=== PATIENT | female | born 1995 | race Caucasian/White ===

== ENCOUNTER 2019-09-22 05:10 | Day surgery (SDC) | payer OTHER ==
[~2019-09-22] VITALS: Ht 157.5 cm; Wt 73.0 kg
[2019-09-22] VITALS (13 sets, daily range): BP systolic 109–128; BP diastolic 62–80
[2019-09-22] MEDS ORDERED: NEXPLANON68 MG SQ (05:59)
[2019-09-22] MEDS ORDERED: Morphine Sulfate 4mg/ml Inj (IV USE ONLY) IM PRN (06:00)
[2019-09-22] MEDS ORDERED: oxyCODONE 5mg IR tab ORAL PRN ×2 (06:00→15:01)
[2019-09-22] MEDS ORDERED: Chloraseptic Spray 20mL Bottle ORAL PRN (06:00)
[2019-09-22] MEDS ORDERED: LORazepam 0.5mg tab ORAL PRN (06:00)
[2019-09-22] MEDS ORDERED: HYDROcodone/Acetamin 10/325 tab ORAL PRN (06:00)
[2019-09-22] MEDS ORDERED: Milk of Magnesia 30ml Ud ORAL PRN (06:00)
[2019-09-22] MEDS ORDERED: Dexamethasone 20mg/5ml IVP SCH (06:00)
[2019-09-22] MEDS ORDERED: LR 1000ml 1,000 ML IVLG SCH (06:29)
[2019-09-22] MEDS ORDERED: Meperidine 50mg/ml Inj(FOR RIGORS ONLY) IVP PRN (06:30)
[2019-09-22] MEDS ORDERED: Hydromorphone 0.5mg/0.5ml inj IVP PRN (06:30)
[2019-09-22] MEDS ORDERED: DiphenhydrAMINE 50mg/ml Inj IVP PRN (06:30)
[2019-09-22] MEDS ORDERED: HYDROcodone/Acetamin 7.5/325 tab ORAL PRN (06:30)
[2019-09-22] MEDS ORDERED: Labetalol 5mg/ml 20ml vial IV PRN (06:30)
[2019-09-22] MEDS ORDERED: HYDROcodone/Acetamin 5/325 tab ORAL PRN (06:30)
[2019-09-22] MEDS ORDERED: LORazepam Inj 2mg/ml 1ml IV PRN (06:30)
[2019-09-22] MEDS ORDERED: Midazolam 2mg/2ml Inj IVP PRN (06:30)
[2019-09-22] MEDS ORDERED: fentaNYL 100 mcg/2 mL IV PRN (06:30)
[2019-09-22] MEDS ORDERED: Ketorolac 30mg Inj IV PRN ×2 (06:30)
[2019-09-22] MEDS ORDERED: oxyCODONE HCL/Acetaminophen 5/325mg ORAL PRN (06:30)
[2019-09-22] MEDS ORDERED: Atropine Sulfate 0.4mg/ml inj IVP PRN (06:30)
[2019-09-22] MEDS ORDERED: Acetaminophen (Non formulary) 100 ML IV ONE (06:30)
--- NOTE | 2019-09-22 06:30 | Anethesia Preoperative Eval ---
Anesthesia Pre-op PMH/ROS General Date of Evaluation: Sep 22, 2019 Time of Evaluation: 07:01 Anesthesiologist: Joelle ASA Score: ASA 1 Mallampati Score Class I : Soft palate, uvula, fauces, pillars visible Class II: Soft palate, uvula, fauces visible Class III: Soft palate, base of uvula visible Class IV: Only hard plate visible Mallampati Classification: Class I Surgeon: Autumn Diagnosis: Neck Pain Surgical Procedure: ACDF C4-5, C5-6 Anesthesia History: none Family History: no anesthesia problems Allergies: Coded Allergies: No Known Allergies (Unverified , 09/21/19) Medications: see eMAR Patient NPO?: Yes NPO Date: Sep 21, 2019 NPO Time: 2300 Anesthesia Pre-op Phys. Exam Physician Exam Last Vital Signs Date Time Temp Pulse Resp B/P (MAP) Pulse Ox O2 Delivery O2 Flow Rate FiO2 09/22/19 06:17 Room Air 09/22/19 05:46 98.5 93 18 123/80 (94) 98 Constitutional: NAD Neurologic: CN 2-12 intact Cardiovascular: RRR Respiratory: CTA Gastrointestinal: S/NT/ND Airway Exam Mallampati Score: Class I MO: full ROM: full Teeth: intact Anesthesia Pre-op A/P Labs Urine Test Test 09/22/19 05:25 Urine HCG, Qualitative Negative (NEGATIVE) Risk Assessment & Plan Assessment: ASA 1 Plan: GA, SED, GlideScope Go Pre-Antibiotics Dru Grams Ancef IV Given Within 1 Hr of Incision: Yes Time Given: 07:26 Jarvis Lai MD Sep 22, 2019 06:30
[2019-09-22] MEDS ORDERED: Gelfoam Size TOPIC ONE (06:33)
[2019-09-22] MEDS ORDERED: Thrombin 5000 units TOPIC ONE ×2 (06:33→07:18)
[2019-09-22] MEDS ORDERED: Bacitracin 50000 Units Vial ONE (06:33)
[2019-09-22] MEDS ORDERED: Rocuronium Bromide 50mg/5ml Inj IV ONE (06:35)
--- NOTE | 2019-09-22 06:50 | Immediate Post-Op Evaluation ---
Immediate Post-Op Evalulation Immediate Post-Op Evalulation Procedure: ACDF C4-5, C5-6 Date of Evaluation: Sep 22, 2019 IV Fluids: 1100 LR Blood Products: 0 Estimated Blood Loss: 25 Urinary Output: 0 Blood Pressure Systolic: 117 Blood Pressure Diastolic: 71 Pulse Rate: 94 Respiratory Rate: 16 O2 Sat by Pulse Oximetry: 100 Temperature (Fahrenheit): 97 Pain Score (1-10): 2 Nausea: No Vomiting: No Complications 0 Patient Status: awake, reacts, patent, extubated, none Hydration Status: adequate Dru Grams Ancef IV Given Within 1 Hr of Incision: Yes Time Given: 07:26 Jarvis Lai MD Sep 22, 2019 06:49
[2019-09-22] MEDS ORDERED: Lidocaine 1% MPF 10mg/ml 5ml ONE (06:56)
[2019-09-22] MEDS ORDERED: Sodium Chloride 10ml vial INJ ONE (06:56)
[2019-09-22] MEDS ORDERED: Lidocaine 1% Plain 30 ml INJ ONE ×2 (06:56→08:43)
[2019-09-22] MEDS ORDERED: Dexamethasone 4mg/ml vial ONE (06:56)
[2019-09-22] MEDS ORDERED: fentaNYL 100 mcg/2 mL IV ONE ×2 (06:57→08:10)
[2019-09-22] MEDS ORDERED: LR 1000ml ONE ×2 (07:00)
[2019-09-22] MEDS ORDERED: Sterile Water Irrig 1000ml IRRIG ONE (07:00)
[2019-09-22] MEDS ORDERED: Neostigmine 1mg/ml 10ml Inj ONE (07:00)
[2019-09-22] MEDS ORDERED: Labetalol 5mg/ml 20ml vial IV ONE (07:00)
[2019-09-22] MEDS ORDERED: Propofol 1,000mg/ 100ml btl IV ONE (07:00)
[2019-09-22] MEDS ORDERED: NS Irrig 1000ml ONE (07:00)
[2019-09-22] MEDS ORDERED: ceFAZolin sod 1gm in D5W 55ml IVPB ONE (07:00)
--- NOTE | 2019-09-22 07:10 | Pre-Procedure Note/Attestation ---
Pre-Procedure Note/Attestation Complete Prior to Procedure Planned Procedure: not applicable Procedure Narrative: ACDF C4-C5, C5-C6 Anterior Plate Fixation Indications for Procedure Pre-Operative Diagnosis: traumatic neck pain HNP Attestation I attest that I discussed the nature of the procedure; its benefits; risks and complications; and alternatives (and the risks and benefits of such alternatives ), prior to the procedure, with the patient (or the patient's legal clearance representative). I attest that, if there was a reasonable possibility of needing a blood transfusion, the patient (or the patient's legal clearance representative) was given the [facility] standardized written summary, pursuant to the [place] Blood Safety Act ([place] Health and Safety Code # 1645, as amended). I attest that I re-evaluated the patient just prior to the surgery and that there has been no change in the patient's H&P, except as documented below: Moo Leyva MD Sep 22, 2019 07:10
[2019-09-22] MEDS ORDERED: Glycopyrrolate 0.2mg/ml 1ml Vial ONE (09:05)
--- NOTE | 2019-09-22 09:33 | Brief Operative Note ---
Immediate Post Operative Note Operative Note Pre-op Diagnosis: traumatic neck pain HNP Procedure: ACDF C4-C5, C5-C6 Anterior plate osteopromotive material titanium interbody device C4-C5, C5-C6 Findings: consistent w/pre-op dx studies Surgeon: Autumn NDIAYE Slip Sheeter: Morales WATTS Anesthesiologist: Joelle NDIAYE Anesthesia: general Specimen: yes Complications: none Condition: stable Fluids: anesthesia Estimated Blood Loss: minimal Drains: none Implant(s) used?: Yes Moo Leyva MD Sep 22, 2019 09:32
[2019-09-22] MEDS ORDERED: Naloxone 0.4mg/ml Inj IVP PRN (09:45)
--- NOTE | 2019-09-22 13:36 | Diagnostic Imaging Report ---
Indication: Neck pain Technique: Intraoperative fluoroscopic imaging from spinal surgery Operating Physician: Moo Leyva MD Total fluoroscopy time 10.1 seconds Total fluoroscopy dose 0.81 mGy Total number fluoroscopic images 4 Radiologist not present during image acquisition Comparison: None Findings: Intraoperative fluoroscopic imaging from spinal surgery demonstrate an indwelling endotracheal tube and anterior cervical fusion spanning from C4 to C6 by means of an anterior plate affixed by 2 screws at each level as well as interbody disc spacers. Multiple surgical zain are noted. IMPRESSION: Intraoperative fluoroscopic imaging from spinal surgery. Please see operative report.
[2019-09-22] MEDS ORDERED: D5 1/2NS 1,000 ML IV SCH (14:00)
[2019-09-22] MEDS: ceFAZolin sod 1 GM in D5W 55 ML IV SCH ×2 (14:26→14:28)
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
--- NOTE | 2019-09-22 16:15 | Operative Note - Dictated ---
DATE OF OPERATION: 09/22/2019 ADMITTING/PREOPERATIVE DIAGNOSIS: Posttraumatic discogenic neck pain. POSTOPERATIVE DIAGNOSIS: Posttraumatic discogenic neck pain. OPERATIVE PROCEDURE: 1. ACDF C4-C5, C5-C6. 2. Anterior internal plate fixation with internal fixation of screws interbody titanium graft, osteopromotive material placement for fusion. 3. Anterior plate with bilateral screws noted at C4-C5-C6. 4. Intraoperative fluoroscopy interpreted by surgeon. SURGEON: Moo Leyva M.D. SAP [facility] SECURITY: STEFANIE Marte. ANESTHESIOLOGIST: Jarvis Lai M.D. ANESTHESIA: General with intubation. ESTIMATED BLOOD LOSS: Minimal. COMPLICATIONS: None. POSTOPERATIVE CONDITION: Good/stable. DESCRIPTION OF PROCEDURE: The patient was brought to the operating room and in the supine position, general anesthesia with intubation was induced. IV antibiotics and IV Decadron were administered 30 minutes prior to incision time. Cross-table imaging was obtained with markers placed on the contralateral aspect of the neck/skin to determine the correct level for incision placement. Position markers was recorded with sterile marking pen. Markers removed. Anterior cervical spine sterilely prepped and draped free in usual sterile fashion. A transverse incision as previously marked left was sharply placed in the dermis and epidermis. Electrocautery dissection was carried through the subcutaneous tissue to the level of the platysmas muscle was identified isolated and transected in line with the incision. Blunt dissection was carried medial to the sternocleidomastoid muscle and the carotid sheath through the deep cervical pretracheal fascia to the midline between the right and left longus colli muscles. Spinal needle was placed into the disk space under direct high-power magnification bent so as to avoid penetration greater 3 mm into the disk space. Cross-table imaging under sterile conditions demonstrating the correct level for further surgery. Level was marked, needle removed. Subperiosteal elevation of the longus coli muscles followed with retractor placement. C5-C6: Distraction pins were placed with annulotomy followed with diskectomy to but not through the posterior longitudinal ligament. Denuding of endplates of cartilage with Midas Lorne bur dissection. Appropriate graft trial utilized with fluoroscopic guidance followed with graft placement with titanium graft to the appropriate dimensions and lordosis containing osteopromotive material with local autograft. Depth of the graft was the smallest that is manufactured. Graft position excellent. Pins removed. Bleeding bone cauterized with application of wax. Dissection carried to the C4-C5 interval with retractors placement, annulotomy, diskectomy with utilization of traction pins. Pins 12 mm. Endplates denuded of cartilage utilizing Midas Lorne bur dissection followed with appropriate trials and placement of titanium graft also containing osteopromotive material local autograft. Pins were removed. Bone cauterized with application of sterile wax. A 10 pounds of traction on the neck removed. Anterior internal plate fixation with bilateral screws at C4, C5, C6 locked into position. Excellent alignment position on AP and lateral planes with formal radiographs obtained and recorded. Wound was irrigated with antibiotic-containing saline. Exploration revealed no obvious excoriation or laceration of vital structures. SSEP monitoring stable at all times with negative EMGs. FloSeal applied followed with reapproximation with Vicryl suture material of the platysmas muscle followed with subcuticular reapproximation and running of the dermis and epidermis with transverse surgical strips. Sterile bandage applied, maintained in place with tape. The patient was awakened, extubated in the operating room, and transported to postop recovery in good stable condition. Moo Leyva M.D. DR: RUBEN JOB#: [id number] CC:
--- NOTE | 2019-09-22 16:35 | NUR ---
NURSE NOTES: pt voidedx 2, ambulated to the restroom. percocet effective in pain management as well as chloraseptic spray.
--- NOTE | 2019-09-22 17:02 | NUR ---
NURSE NOTES: pt left in stable condition, arm band and iv removed, no bleeding. pt has all belongings. dc instructions rendered w verbalized understanding re no twisting, no heavy lifting.
[2019-09-23 08:45] VITALS: BP 116/72
--- NOTE | 2019-09-23 08:45 | 48 Hour Post Anesthesia Eval ---
Post Anesthesia Evaluation Procedure: ACDF C4-5, C5-6 Date of Evaluation: Sep 22, 2019 Time of Evaluation: 15:20 Blood Pressure Systolic: 116 0: 72 Pulse Rate: 78 Respiratory Rate: 20 Temperature (Fahrenheit): 97.6 O2 Sat by Pulse Oximetry: 99 Airway: patent Nausea: No Vomiting: No Pain Intensity: 2 Hydration Status: adequate Cardiopulmonary Status: stable Mental Status/LOC: patient returned to baseline Follow-up Care/Observations: n/a Post-Anesthesia Complications: none Follow-up care needed: ready to discharge Abdi Lester MD Sep 23, 2019 08:45
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
== END 2019-09-22 16:54 | disposition home or self-care (01) ==
LOC: SUR 05:10 → 3E 13:16
DX: M54.2 Cervicalgia (principal); E66.9 Obesity, unspecified; Z68.29 Body mass index [BMI] 29.0-29.9, adult; F41.9 Anxiety disorder, unspecified
CPT/HCPCS: 22554; 22585; 36415; 72040; 76000; 81025; 86850; 86900; 86901; C1713; J0690; J1100; J1885; J2001; J2175; J2250; J2270; J2405; J2704; J2710; J3010; J7120; 94003; 94150

== ENCOUNTER 2020-04-20 05:06 | Observation (INO) | payer OTHER ==
[~2020-04-20] VITALS: Ht 157.5 cm; Wt 70.3 kg
[2020-04-20] VITALS (17 sets, daily range): BP systolic 100–139; BP diastolic 58–91
[~2020-04-20 05:06] MED LIST: NEXPLANON68 MG SQ; NORCO 5-325 TA1 EAC1 ORAL
[2020-04-20] MEDS ORDERED: Chloraseptic Spray 20mL Bottle ORAL PRN (06:30)
[2020-04-20] MEDS ORDERED: HYDROmorphone 1mg/ml Carpuject SUBQ PRN (06:30)
[2020-04-20] MEDS ORDERED: HYDROcodone/Acetamin 10/325 tab ORAL PRN (06:30)
[2020-04-20] MEDS ORDERED: Milk of Magnesia 30ml Ud ORAL PRN (06:30)
[2020-04-20] MEDS ORDERED: Rocuronium Bromide 50mg/5ml Inj IV ONE (06:36)
[2020-04-20] MEDS ORDERED: Vancomycin 1gm vial IVPB ONE (06:42)
[2020-04-20] MEDS ORDERED: Bacitracin 50000 Units Vial ONE (06:43)
[2020-04-20] MEDS ORDERED: Gelfoam Size TOPIC ONE (06:43)
[2020-04-20] MEDS ORDERED: Sodium Chloride 10ml vial INJ ONE (06:43)
[2020-04-20] MEDS ORDERED: Bupivacaine 0.5% Inj 30 ml vial INJ ONE (06:43)
[2020-04-20] MEDS ORDERED: Lidocaine 1% MPF 10mg/ml 5ml ONE (06:43)
[2020-04-20] MEDS ORDERED: Thrombin 5000 units TOPIC ONE ×2 (06:44→06:52)
[2020-04-20] MEDS ORDERED: fentaNYL 100 mcg/2 mL IV ONE (06:46)
[2020-04-20] MEDS ORDERED: Lidocaine 1% Plain 30 ml INJ ONE ×2 (06:50→09:07)
[2020-04-20] MEDS ORDERED: LR 1000ml 1,000 ML IVLG SCH (06:53)
--- NOTE | 2020-04-20 06:57 | Anethesia Preoperative Eval ---
Anesthesia Pre-op PMH/ROS General Date of Evaluation: Apr 20, 2020 Time of Evaluation: 07:12 Anesthesiologist: Joelle ASA Score: ASA 1 Mallampati Score Class I : Soft palate, uvula, fauces, pillars visible Class II: Soft palate, uvula, fauces visible Class III: Soft palate, base of uvula visible Class IV: Only hard plate visible Mallampati Classification: Class I Surgeon: Autumn Diagnosis: Neck Pain Surgical Procedure: Redo ACDF C4-5, C5-6 Anesthesia History: none Family History: no anesthesia problems Allergies: Coded Allergies: No Known Allergies (Unverified , 04/20/20) Medications: see eMAR Patient NPO?: Yes Past Medical History Hematology/Immune: Reports: anemia PSxH Narrative: ACDF C4-5, C5-6 Sep 22 Anesthesia Pre-op Phys. Exam Physician Exam Last Vital Signs Date Time Temp Pulse Resp B/P (MAP) Pulse Ox O2 Delivery O2 Flow Rate FiO2 04/20/20 05:51 Room Air 04/20/20 05:50 98.2 73 16 113/80 (91) 98 Constitutional: NAD Neurologic: CN 2-12 intact Cardiovascular: RRR Respiratory: CTA Gastrointestinal: S/NT/ND Airway Exam Mallampati Score: Class I MO: full ROM: limited Teeth: intact Anesthesia Pre-op A/P Labs Chemistry Test 04/20/20 05:40 Human Chorionic Gonadotropin, Qual Negative (NEGATIVE) Serum Test Test 04/20/20 05:40 Human Chorionic Gonadotropin, Qual Negative (NEGATIVE) Risk Assessment & Plan Assessment: ASA 1 Plan: GA, SED, GlideScope Status Change Before Surgery: No Pre-Antibiotics DruGrams Ancef IV Given Within 1 Hr of Incision: Yes Time Given: 07:36 Jarvis Lai MD Apr 20, 2020 06:57
--- NOTE | 2020-04-20 06:58 | Immediate Post-Op Evaluation ---
Immediate Post-Op Evalulation Immediate Post-Op Evalulation Procedure: Redo ACDF C4-5, C5-6 Date of Evaluation: Apr 20, 2020 Time of Evaluation: 10:33 IV Fluids: 700 LR Blood Products: 0 Estimated Blood Loss: 30 Urinary Output: 225 Blood Pressure Systolic: 121 Blood Pressure Diastolic: 83 Pulse Rate: 105 Respiratory Rate: 16 O2 Sat by Pulse Oximetry: 100 Temperature (Fahrenheit): 97.3 Pain Score (1-10): 2 Nausea: No Vomiting: No Complications 0 Patient Status: awake, reacts, patent, extubated, none Hydration Status: adequate Dru Grams Ancef IV Given Within 1 Hr of Incision: Yes Time Given: 07:36 Jarvis Lai MD Apr 20, 2020 06:58
[2020-04-20] MEDS ORDERED: LORazepam Inj 2mg/ml 1ml IV PRN (07:00)
[2020-04-20] MEDS ORDERED: HYDROcodone/Acetamin 7.5/325 tab ORAL PRN (07:00)
[2020-04-20] MEDS ORDERED: DiphenhydrAMINE 50mg/ml Inj IVP PRN (07:00)
[2020-04-20] MEDS ORDERED: fentaNYL 100 mcg/2 mL IV PRN (07:00)
[2020-04-20] MEDS ORDERED: propofoL 1,000mg/100ml IV ONE (07:00)
[2020-04-20] MEDS ORDERED: Meperidine 25mg/0.5ml Inj (FOR RIGORS ONLY) IV PRN (07:00)
[2020-04-20] MEDS ORDERED: Hydromorphone 0.5mg/0.5ml inj IVP PRN (07:00)
[2020-04-20] MEDS ORDERED: ceFAZolin sod 1 GM in NS 55 ML IVPB ONE (07:00)
[2020-04-20] MEDS ORDERED: HYDROcodone/Acetamin 5/325 tab ORAL PRN (07:00)
[2020-04-20] MEDS ORDERED: oxyCODONE HCL/Acetaminophen 5/325mg ORAL PRN (07:00)
[2020-04-20] MEDS ORDERED: Midazolam 2mg/2ml Inj IVP PRN (07:00)
[2020-04-20] MEDS ORDERED: Ketorolac 30mg Inj IV PRN ×2 (07:00)
[2020-04-20] MEDS ORDERED: Acetaminophen (Non formulary) 100 ML IV ONE (07:00)
[2020-04-20] MEDS ORDERED: Atropine Sulfate 0.4mg/ml inj IVP PRN (07:00)
[2020-04-20] MEDS ORDERED: Labetalol 5mg/ml 20ml vial IV PRN (07:00)
[2020-04-20] MEDS ORDERED: LR 1000ml ONE (07:00)
[2020-04-20] MEDS ORDERED: Sterile Water Irrig 1000ml IRRIG ONE (07:00)
--- NOTE | 2020-04-20 07:24 | Pre-Procedure Note/Attestation ---
Pre-Procedure Note/Attestation Complete Prior to Procedure Planned Procedure: not applicable Procedure Narrative: exploration fusion mass removal plate removal interbody device hemivertibrectomy interbody device placement with osteopromotive material anterior plate fixation possible posterior latermas screws with fusion Indications for Procedure Pre-Operative Diagnosis: pseudarthrosis post trauma Attestation I attest that I discussed the nature of the procedure; its benefits; risks and complications; and alternatives (and the risks and benefits of such alternatives ), prior to the procedure, with the patient (or the patient's legal employer relations representative). I attest that, if there was a reasonable possibility of needing a blood transfusion, the patient (or the patient's legal employer relations representative) was given the [place] [facility] standardized written summary, pursuant to the [place] Blood Safety Act ([place] Health and Safety Code # 1645, as amended). I attest that I re-evaluated the patient just prior to the surgery and that there has been no change in the patient's H&P, except as documented below: Moo Leyva MD Apr 20, 2020 07:24
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
[2020-04-20] MEDS ORDERED: NS Irrig 1000ml IRRIG ONE (09:05)
[2020-04-20] MEDS ORDERED: Glycopyrrolate 0.2mg/ml 1ml Vial ONE (09:21)
[2020-04-20] MEDS ORDERED: Neostigmine 1mg/ml 10ml Inj ONE (09:21)
--- NOTE | 2020-04-20 09:58 | Brief Operative Note ---
Immediate Post Operative Note Operative Note Pre-op Diagnosis: pseudarthrosis post trauma Procedure: removal plate exploration fusion remoal C5-C6 interbody devicw patial vertebrectomy C5 C5-C6 inerbody device osteopromotive material Anterior in ternal Plate fixation C4-C6 Xray SSEP scar tissue Post-op Diagnosis: same as pre-op Findings: consistent w/pre-op dx studies Surgeon: Autumn NDIAYE Small Products I Assembler: Morales WATTS Anesthesiologist: Joelle NDIAYE Anesthesia: general Specimen: yes Complications: none Condition: stable Fluids: anestheia Estimated Blood Loss: minimal Drains: none Implant(s) used?: Yes Moo Leyva MD Apr 20, 2020 09:58
[2020-04-20] MEDS ORDERED: Naloxone 0.4mg/ml Inj IVP PRN (10:00)
--- NOTE | 2020-04-20 10:21 | 48 Hour Post Anesthesia Eval ---
Post Anesthesia Evaluation Procedure: Redo ACDF C4-5, C5-6 Date of Evaluation: Apr 20, 2020 Time of Evaluation: 12:44 Blood Pressure Systolic: 113 0: 76 Pulse Rate: 81 Respiratory Rate: 18 Temperature (Fahrenheit): 98 O2 Sat by Pulse Oximetry: 100 Airway: patent Nausea: No Vomiting: No Pain Intensity: 2 Hydration Status: adequate Cardiopulmonary Status: Stable Mental Status/LOC: patient returned to baseline Follow-up Care/Observations: 0 Post-Anesthesia Complications: 0 Follow-up care needed: ready to discharge Jarvis Lai MD Apr 20, 2020 10:21
[2020-04-20] MEDS ORDERED: D5 1/2NS 1,000 ML IV SCH (11:31)
--- NOTE | 2020-04-20 11:52 | NUR ---
NURSE NOTES: Patient received from PACU via bed on O2 3LNC, in stable condition. Patient sleeping, awakens lightly to name, and gentle shaking, then falls back asleep, able to follow simple instructions and perform checks. Soft cervical collar in place, anterior dressing CDI. Neuros intact, wiggles, skin warm, pulses palpable, hand grasps/pedal pushes 2/5, equal/weak. Bilateral SCDs on. Belongings reviewed. Oriented patient to call light. Bed in lowest position, call light in reach, will continue to monitor.
--- NOTE | 2020-04-20 13:10 | Diagnostic Imaging Report ---
INDICATION: Pain, intraoperative TECHNIQUE: Intraoperative imaging Fluoroscopy time: 10.1 seconds Total dose: 0.66047 mGym2 Total number of images: 4 COMPARISON: None FINDINGS: Intraoperative images demonstrate surgical fusion hardware bridging C4-C6, with intervening disc spacers. IMPRESSION: Intraoperative images, as described
[2020-04-20] MEDS ORDERED: D5 1/2NS 1000ml IV ONE (15:15)
[2020-04-20] MEDS ORDERED: ceFAZolin sod 1 GM in D5W 55 ML IV SCH (15:30)
--- NOTE | 2020-04-20 15:55 | NUR ---
NURSE NOTES: PER DR. CLAY REQUEST, WANTED NON-PRIMARY NURSE TO PLACE DC ORDER FOR PATIENT TO LEAVE TONIGHT. STATES DR. WASHINGTON IS OK WITH PATIENT LEAVING TONIGHT. ORDER PLACED. PRIMARY RN AND CHARGE NURSE MADE AWARE. CN SPOKE TO [facility] VIA PHONE. 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
--- NOTE | 2020-04-20 16:04 | NUR ---
NURSE NOTES: Dr. Blank called regarding patient's current status, notified that patient is just waking up now, has been very sleepy, vitals stable, however at this time with patient waking up, HR 120-140, T 98.3 R 20 BP 125/76 O2 saturation 99% on O2 3LNC, patient is calm, at rest, no SOB, no complains of pain, no NV, asymptomatic, no chest pain. Orders received to run current IVF wide open and then once bag complete to heplock IV, discharge today after patient has ambulated in room (does not need to wait for PT evaluation), voided and eats. 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 Addendum: 04/20/20 at 1617 by Nora Vaca RN Patient has [place] pain medication already filled at home.
--- NOTE | 2020-04-20 17:55 | NUR ---
NURSE NOTES: IVF (D5 1/2 NS) removed from IV pump and clamp opened to gravity, at 1710 until 1755, completed, 625 ml infused. Patient voided x2 (BRP) this shift, no NV. Tolerated clear liquids fair. Will continue to monitor.
[2020-04-20] MEDS ORDERED: Docusate 100mg cap ORAL SCH (18:00)
--- NOTE | 2020-04-20 19:20 | NUR ---
NURSE HAND-OFF: Important Events on Shift:Post op patient of Dr. Leyva arrived to unit at 1152, discharge home at 1999 Patient Status: stable Diet: clear liquids, can advance to soft easy chew as tolerated Pending Orders: none Pending Results/Labs:none Pending MD notification:none Latest Vital Signs: Temperature 98.3 , Pulse 123 , B/P 125 /76 , Respiratory Rate 20 , O2 SAT 99 , Nasal Cannula, O2 Flow Rate 3.0 . Vital Sign Comment: none Latest Weems Fall Score: 35 Fall Risk: Medium Risk Safety Measures: Call light Within Reach, Bed Alarm Zone 1, Side Rails Side Rails x2, Bed position Low and Locked. Fall Precautions: Yellow Socks Patient Fall Education Report given to Kathia THOMPSON.
--- NOTE | 2020-04-20 19:21 | NUR ---
NURSE NOTES: Received a pt awake,A&Ox4, and verbal. No sob,cough,fever, and pain at the moment. Iv is intact and asymptomatic. Surgical dressing is dry and intact. Pt is getting D/c, waiting for her fiance to pick her up. Bed is in the lowest position,locked, and call light within reach. We will keep monitoring the pt.
--- NOTE | 2020-04-20 20:15 | NUR ---
NURSE NOTES: when i tried to pull out the Dilaudid 1 mg the syringe broke. Called the pharmacy, they told me to return the med and pull out another Dilaudid.
[2020-04-20] MEDS ORDERED: Tubing IV Secondary IV ONE (20:59)
--- NOTE | 2020-04-20 21:01 | NUR ---
NURSE NOTES: I walked the pt downstairs (refused wheelchair) and she left the hospital with her fiance. I took out the iv, Education done, and pt took her belonging (signed belonging paper).
--- NOTE | 2020-04-20 23:45 | Operative Note - Dictated ---
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 OPERATIVE PROCEDURE: 1. Exploration of fusion mass. 2. Operation through scar tissue. 3. Removal of anterior internal plate fixation, C4-C5-C6. 4. Removal of interbody titanium reconstructed graft, C5-C6. 5. Michel-vertebrectomy, inferior C5. 6. Interbody reconstruction with titanium graft-graft knot, the graft was removed and of a different size and height. 7. New graft position C5-C6 with placement of osteopromotive material augmented with local autograft. 8. Anterior internal fixation of bilateral C4 and bilateral C6, with anterior plate, plate/screws not integral to the interbody device. 9. Intraoperative fluoroscopy interpreted by surgeon. 10. SSEP monitoring. 11. High-powered microscopic dissection. SURGEON: Moo Leyva, PhD, MD KEY HOLDER: STEFANIE Kapoor ANESTHESIOLOGIST: Jarvis Lai MD ANESTHESIA: General with intubation. ESTIMATED BLOOD LOSS: Minimal. COMPLICATIONS: None. POSTOPERATIVE CONDITION: Good/stable. SPECIMEN: Titanium spacer to Pathology . DESCRIPTION OF PROCEDURE: The patient was brought to the operating room and laid in supine position. General anesthesia with intubation was induced. IV antibiotics and IV Decadron were administered 30 minutes prior to incision time. Marker was placed on the prior incision on the left lateral aspect of the neck in the skin fold and a cross-table image was obtained demonstrating that as the correct level for the dissection/incision placement. Marker was removed. Anterior cervical spine was sterilely prepped and draped free in usual sterile fashion. Right transverse incision within the skin fold as previously noted for level was placed. Sharp dissection was carried through dermis and epidermis with electrocautery dissection through the subcutaneous tissue to the level of the platysma muscle that was identified, isolated, and transected in line with the incision. Blunt dissection was carried through the deep cervical and pretracheal fascia medial to the right sternocleidomastoid muscle and the carotid sheath. Dissection was carried through interval between the esophagus and the anterior vertebral bodies. The scar tissue was encountered. Careful dissection bluntly was utilized to elevate the esophagus from the anterior vertebral body aspect. No obvious lacerations or excoriation noted. Scar tissue was incised in midline under high-power magnification and elevated right and left to the midline to the lateral extents of the interbody titanium spacers of the involved intervals. Retractor was placed. Exploration of the C4-C5 interval revealed the graft to be in place albeit evidence of loosening/pseudoarthrosis. Retractors were replaced at the C5-C6 interval. Under high-power magnification with the anterior interbody implanting device which stops to avoid penetration of the device into the canal of the spine, motion was noted at the inferior aspect of the C5 vertebral body graft interface. Inspection of the graft-C6 superior vertebral body interface revealed gross motion with fibrous tissue. The interbody device was removed without lateralization torquing in a cephalad-caudad motion. After removal, high-speed Midas Lorne bur dissection was utilized with partial vertebrectomy at inferior C5 as necessary secondary to the implant-titanium interbody device intrusion into the vertebral body. Of note is that the anterior plate was removed prior to the direct observation of the interspaces. The screws at the C4 vertebral body were noted to be intact and tight. The screws at the C5 vertebral body interval were noted to be loose, but intact without fracture. The screws at the C6 vertebral body interval were noted to be loose, but without fracture. After the appropriate dissection at the C5-C6 interval, it was noted the dissection was carried to the posterior aspects of the vertebral bodies. No dural tears or leaks occurred at anytime during the procedure. SSEP monitoring remained stable at all times. Appropriate trials were utilized with determination to replace the 7 mm in height graft with the identical footprint with regard to depth, medial and lateral dimensions, but to the level of 10 mm. The graft was packed with osteopromotive material with a combination of local autograft prior to insertion. Of note is that the inserting device is particular which stops to avoid penetration of the graft posterior to the anterior vertebral body line. The graft was tamped into position under high-power magnification. Cross-table imaging was obtained demonstrating excellent alignment and positioning. Inserting device was removed. Wound was irrigated with antibiotic-containing saline. All traction on the neck (10 pounds) was removed. Graft was stable. The appropriate plate that would match the hole position as previously noted in the C4 and the C6 vertebral bodies was selected. Cross-table imaging was obtained demonstrating alignment as being appropriate for the noted prior holes and the graft positions. Retrieval screws were inserted, I think 12 mm in depth, the same depth that was utilized during the prior surgery and back of the screws removed. Screws were inserted and locked into position with excellent purchase. Under sterile conditions, AP and lateral fluoroscopic images were obtained demonstrating appropriate alignment of the graft as well as plate/screw construct. The interval was explored under high-power magnification. No gross bleeding noted. No evidence of excoriation or laceration of vital structures. As previously noted, there was no evidence of cerebrospinal fluid leakage. The patient was stable at all times. FloSeal was applied overlying the surgical interval. The platysma muscle was reapproximated with Vicryl suture material in simple interrupted fashion. Subcuticular suture was performed followed with reapproximation of dermis and epidermis further with surgical strips. A sterile bandage was applied and maintained in place with tape. Soft collar of appropriate dimensions was applied prior to the patient being awakened or extubated. The patient was awakened, extubated in the operating room, and transported to postop recovery in good and stable condition. Moo Leyva M.D. DR: MALENA JOB#: [id number] CC:
--- NOTE | 2020-04-24 15:16 | Discharge Summary ---
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 Reason for Hospitalization: elective surgery HPI Keeley Sebastian is a 24 year old female who was admitted on Apr 20, 2020 at 11:26 for posttraumatic pseudarthrosis and fracture through graft-bone interface, cervical spine. Patient admitted for elective surgical intervention Consultations Dr Blank - pain specialist Procedures s/p 04/20/[address] Leyva 1. Exploration of fusion mass. 2. Operation through scar tissue. 3. Removal of anterior internal plate fixation, C4-C5-C6. 4. Removal of interbody titanium reconstructed graft, C5-C6. 5. Michel-vertebrectomy, inferior C5. 6. Interbody reconstruction with titanium graft-graft knot, the graft was removed and of a different size and height. 7. New graft position C5-C6 with placement of osteopromotive material augmented with local autograft. 8. Anterior internal fixation of bilateral C4 and bilateral C6, with anterior plate, plate/screws not integral to the interbody device. 9. Intraoperative fluoroscopy interpreted by surgeon. 10. SSEP monitoring. 11. High-powered microscopic dissection. Hospital Course status post surgery course of recovery uneventful initially IV fluids s/p perioperative antibiotic and IV steroid x 1 neurovascular status was closely monitored, remained stable incision clean , dry and intact pain management was addressed pain specialist followed; pain controlled remained hemodynamically stable ambulated with PT fall precautions maintained; safe for ambulation use of incentive spirometry was encouraged while in the bed tolerated liquid diet , IV fluids discontinued GI prophylaxis provided antiemetics were on board as needed voided freely patient was stable for discharge discharge instructions provided follow up with surgeon inthe office as advised FINAL DIAGNOSES Posttraumatic pseudarthrosis and fracture throughgraft-bone interface, cervical spine. s/p Redo ACDF C4-5, C5-6 Discharge Medications Continued Medications: Etonogestrel (Nexplanon) 68 Mg Implant 68 MG SQ q 3 years for control, EA (This prescription has been renewed) Hydrocodone Bit/Acetaminophen 5-325* ([place] 5-325 Tablet*) 1 Each Tablet 1 TAB ORAL DAILY PRN for For Pain, #10 TAB (This prescription has been renewed) Discharge Condition Upon Discharge: stable Discharge Vital Signs Last Vital Signs Date Time Temp Pulse Resp B/P (MAP) Pulse Ox O2 Delivery O2 Flow Rate FiO2 04/20/20 20:00 98.8 88 20 139/80 (99) 98 04/20/20 12:28 Nasal Cannula 3.0 Discharge Disposition Patient was discharged to Discharge Instructions Discharge Instructions Special Instructions I have been assigned to complete a D/C Summary on this account. I was not involved in the patient management Brinda Moreno NP Apr 24, 2020 15:16
== END 2020-04-20 21:00 | disposition home or self-care (01) ==
LOC: SUR 05:06 → 3E 11:26 → INTOOBSV 11:26
DX: M96.0 Pseudarthrosis after fusion or arthrodesis (principal); V89.2XXS Person injured in unspecified motor-vehicle accident, traffic, sequela; E66.9 Obesity, unspecified; G89.18 Other acute postprocedural pain
CPT/HCPCS: 20931; 20936; 22554; 22585; 22845; 22853; 22855; 36415; 72040; 76000; 84703; 86850; 86900; 86901; 87081; 94003; C1713; G0378; J0131; J0690; J1100; J1170; J1200; J2001; J2250; J2405; J2704; J2710; J3010; J7120; U0002; 94150; J2180